=== PATIENT | female | born 1995 | race Caucasian/White ===

== ENCOUNTER 2020-02-01 09:42 | Emergency (ER) | payer BC ==
--- NOTE | 2020-02-01 09:53 | EDM.PDOC ---
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 Patient was dx with miscarriage and given PO misprostol which she took last night. Woke up with heavy bleeding and cramping. Had one presyncopal episode. Was seen at outside ED and had lab work revealing Hgb 11.7 (drop from 12.4). Noted on exam to have large amount of blood in posterior vaginal vault w/ visible products. Dr. Holden of [facility] ED has consulted our OBGYN who recommended transfer. I spoke with Dr. Rodriguez, the patient's OB, who will be here to see the patient in 10min. ED ROS GENERAL - Review of Systems Review Of Systems: Comprehensive ROS is negative, except as noted in HPI. ED EXAM - Physical Exam Exam: See Below Exam Limited By: No Limitations General Appearance: Alert, WD/WN, No Apparent Distress Ears: Normal External Exam Nose: Normal Inspection Throat/Mouth: Normal Inspection, Normal Voice, No Airway Compromise Head: Atraumatic, Normocephalic Neck: Normal Inspection Respiratory/Chest: No Respiratory Distress GI/Abdominal Exam: Soft, Non-Tender Extremities: Normal Inspection Neurological: Alert Psychiatric: Normal Affect, Normal Mood Skin Exam: Warm, Dry, Intact Course - Re-Assessments/Exams Free Text/Narrative Re-Assessment/Exam: 02/01/20 09:53 Patient is stable with normal VS and without signs of distress; will set up for OB exam by Dr. Aguilar who is contacted and will be here to eval patient in ED 02/01/20 10:34 Patient has been evaluated by OBGYN Dr. Aguilar and cleared for discharge, no indication for D&C at this time. She is to f/u with Dr. Aguilar in [place] later this week for repeat labs/eval. Does not need additional labs today. Return precautions discussed Departure - Departure Time of Disposition: 10:35 Disposition: Home, Self-Care 01 Condition: Good Clinical Impression: Incomplete - Discharge Information Instructions: Incomplete Miscarriage Referrals: PCP,Unobtain [Primary Care Provider] - Forms: ED Department Discharge Additional Instructions: The following information is given to patients seen in the emergency department who are being discharged to home. This information is to outline your options for follow-up care. We provide all patients seen in our emergency department with a follow-up referral. The need for follow-up, as well as the timing and circumstances, are variable depending upon the specifics of your emergency department visit. If you don't have a primary care physician on staff, we will provide you with a referral. We always advise you to contact your personal physician following an emergency department visit to inform them of the circumstance of the visit and for follow-up with them and/or the need for any referrals to a consulting specialist. The emergency department will also refer you to a specialist when appropriate. This referral assures that you have the opportunity for follow-up care with a specialist. All of these measure are taken in an effort to provide you with optimal care, which includes your follow-up. Under all circumstances we always encourage you to contact your private physician who remains a resource for coordinating your care. When calling for follow-up care, please make the office aware that this follow-up is from your recent emergency room visit. If for any reason you are refused follow-up, please contact the [facility] Emergency Department at and asked to speak to the emergency department charge nurse. Please follow up with your primary care physician. If you do not have a primary care physician, see below: [facility] [address] [place] [id number] [facility] [address] [place] [address] Please follow up with Dr. Aguilar later this week
--- NOTE | 2020-02-01 10:41 | PCM.SN.2 ---
- Free Text/Narrative Note: 25yo female was diagnosed with an 8wga missed at [facility] on 01/31/2020. She desired to proceed with vaginal Cytotec for management. States that she placed the medication last evening and had vaginal bleeding with cramping a few hours later. She was up every 1-2 hours overnight with cramping and changing a non-soaked peripad. She presented to the [place], [place] ER early this morning due to lightheadedness. Per patient her Hgb was 11 while in the ED. A pelvic exam was performed and per ED provider, products of conception were noted within the cervix, however, were unable to be removed. Patient then self-transferred with her to [place] ED. Upon my arrival to patient's room in ED, she was sitting up in bed. Vital signs stable. Denies abdominal pain. States that she had been up to the restroom before arriving in [place] and noted a "plop" noise and release of tissue into the toilet. Bleeding has decreased since that time. Vital Signs - 24 hr 02/01/20 02/01/20 10:00 10:50 Temperature [ 96.0 F L Temporal] Pulse, 106 H 72 Peripheral [ Pulse Oximetry] Respiratory 18 13 Rate Blood Pressure 107/65 110/70 [Right Upper Arm] O2 Sat by Pulse 96 98 Oximetry Physical exam: -General: no acute distress -Lungs: clear to auscultation bilaterally -Heart: Regular rate and rhythm -Abdomen: mild tenderness to palpation, no guarding or distention -: no external lesions or discoloration, approximately 5cc of dark red blood within vaginal vault, cervix visualized, no products of conceptions or tissue noted during exam. SVE 1cm/50% effaced/-3 station. Assessment and plan: -Missed * Patient diagnosed with missed on 01/31/2020 and elected for medical management. Placed vaginal Cytotec last evening and had vaginal bleeding with cramping. Tissue passage per patient. Exam as above. * Vital signs stable. * Bleeding/lochia decreasing. * Pain well controlled. * Patient stable for discharge. Has follow up appointment on 02/03/2020. Will obtain repeat Hgb and bHCG at appointment. * Strict precautions reviewed for when patient should notify provider/present to ED including fever/chills, lightheadedness, dizziness, severe abdominal pain not controlled with OTC medications, heavy vaginal bleeding filling 2 pads per hour for more than 1 hours. Questions elicited and answered.
== END 2020-02-01 10:50 | disposition home or self-care (01) ==
LOC: MW.ED 09:42
DX: O03.4 Incomplete spontaneous abortion without complication (principal)
CPT/HCPCS: 99283